=== PATIENT | male | born 1945 | race Caucasian/White ===

== ENCOUNTER 2016-08-05 08:23 | Day surgery (SDC) | payer OTHER ==
[2016-07-24 11:17] VITALS: BMI 26.7
[2016-08-05] MEDS: TROPICAMIDE 1% OPHTH SOLN 15 ML BOTTLE ONE ×5 (09:00→09:20)
[2016-08-05] MEDS: PHENYLEPHRINE 2.5% OPHTH SOLN 15 ML BOTTLE ONE ×5 (09:00→09:20)
[2016-08-05] MEDS: GENTAMICIN SULFATE 0.3% OPHTHALMIC (EYE DROPS) 5ML BOTTLE ONE ×5 (09:00→09:20)
[2016-08-05] MEDS: FLURBIPROFEN 0.03% OPHTH SOLN 2.5 ML BOTTLE ONE ×5 (09:00→09:20)
[2016-08-05] MEDS: CYCLOPENTOLATE HCL 1% OPHTH SOLN 2 ML BOTTLE ONE ×5 (09:00→09:20)
[2016-08-05] MEDS ORDERED: DESFLURANE GAS 240 ML BOTTLE IH ONE (09:42)
[2016-08-05] MEDS ORDERED: ONDANSETRON 4 MG/2 ML VIAL ONE (10:48)
[2016-08-05] MEDS ORDERED: ACETAMINOPHEN 325 MG TABLET (FP) PO PRN (10:55)
[2016-08-05] MEDS ORDERED: ACETYLCHOLINE 1:100 INTRA-OCUL 20 MG/2 ML KIT ONE (11:09)
[2016-08-05] MEDS ORDERED: MIDAZOLAM HCL 2 MG/2 ML SINGLE DOSE VIAL ONE (11:13)
[2016-08-05] MEDS ORDERED: LIDOCAINE HCL 2% JELLY 10 ML CARTRIDGE ONE (11:15)
[2016-08-05] MEDS ORDERED: BACITRACIN/POLYMYXIN OPH OINT 3.5 GM TUBE ONE (12:11)
[2016-08-05 12:31] VITALS: TEMP 98.2
[2016-08-05 12:52] VITALS: BP 128/65; PULSE 65
--- NOTE | 2016-08-05 15:03 | OP ---
DATE OF OPERATION: 08/05/2016 PROCEDURE: Planned extracapsular cataract extraction, phacoemulsification, insertion of posterior chamber lens implant, right eye. SURGEON: Itz Aguilar MD TASSEL MAKING MACHINE OPERATOR: Itz Aguilar MD ANESTHESIA: Local with standby. ANESTHESIOLOGIST: Enrike Rogers MD COMPLICATIONS: None. PREOPERATIVE DIAGNOSIS: Cataract, right eye. POSTOPERATIVE DIAGNOSIS: Cataract, right eye. FINDINGS AND PROCEDURE: After successful peribulbar anesthesia was given to the right eye, the patient was prepped and draped in the usual manner to expose the right eye. The lid speculum was inserted, microscope brought in position over the eye. A superior fornix-based flap was then fashioned for 12 mm using Westcotts and 0.12 forceps and hemostasis achieved with wet-field cautery. A limbal groove was then fashioned for 3 mm with a crescent blade and dissected anterior into clear cornea and then a 3-mm blade was used to enter the anterior chamber. Then under Viscoat, 360-degree anterior capsulotomy was performed, a leaflet removed from the eye, and then phacoemulsification of the entire nucleus was then done in 1-1/2 minutes time followed by irrigation and aspiration of all cortical material, leaving an intact posterior capsule and a red reflex present. ProVisc was injected in the posterior chamber to deepen the posterior capsule and then the implant was inspected carefully under microscope, found to be free of defects, debris, or flaws. It was folded, placed in the ProVisc filled cartridge and the cartridge was placed in the injector and the implant injected into the eye such that the inferior haptic was in inferior capsular bag and superior haptic in superior capsular bag and rotated in a horizontal position with a Sinskey hook. The ProVisc was aspirated out, replaced with Miochol and Miostat and BSS. The wound was closed with a single interrupted 10-0 Ethilon suture and tested for leakage and none was found. Then the conjunctival Tenon flap reapproximated. At this point the implant was fixated in the capsular bag, centrally located with a round pupil, intact posterior capsule, and a red reflex present. Topical Betoptic S and Maxitrol ophthalmic suspensions were placed as was bacitracin/polymyxin B ophthalmic ointment, and then the Tegaderm strips, and the lid speculum removed from the lids. The lids were closed, patch and shield placed on the eye, and the patient was then discharged from the operating room to the recovery area in good condition, having tolerated the procedure well. ITZ AGUILAR M.D. [id number]
== END 2016-08-05 12:55 | disposition home or self-care (01) ==
LOC: FASU 08:23
PROVIDERS: ATTEND Ophthalmology
PROC: 08RJ3JZ Replacement of Right Lens with Synthetic Substitute, Percutaneous Approach (ICD-10-PCS; principal; 2016-08-05 11:38)
DX: H26.8 Other specified cataract (principal)

== ENCOUNTER 2016-09-23 10:15 | Day surgery (SDC) | payer OTHER ==
[2016-09-17 14:33] VITALS: BMI 27.1
[~2016-09-23 10:15] MED LIST: ACETAMINOPHEN 325 MG TABLET (FP) PO PRN
[2016-09-23] MEDS: PHENYLEPHRINE 2.5% OPHTH SOLN 15 ML BOTTLE ONE ×5 (10:55→11:15)
[2016-09-23] MEDS: FLURBIPROFEN 0.03% OPHTH SOLN 2.5 ML BOTTLE ONE ×5 (10:55→11:15)
[2016-09-23] MEDS: GENTAMICIN SULFATE 0.3% OPHTHALMIC (EYE DROPS) 5ML BOTTLE ONE ×5 (10:55→11:15)
[2016-09-23] MEDS: TROPICAMIDE 1% OPHTH SOLN 15 ML BOTTLE ONE ×5 (10:55→11:15)
[2016-09-23] MEDS: CYCLOPENTOLATE HCL 1% OPHTH SOLN 2 ML BOTTLE ONE ×5 (10:55→11:15)
[2016-09-23 13:58] VITALS: TEMP 97.8
[2016-09-23 14:31] VITALS: BP 130/88; PULSE 56
--- NOTE | 2016-09-24 15:04 | OP ---
DATE OF OPERATION: 09/23/2016 PROCEDURE: Planned extracapsular cataract extraction, phacoemulsification, insertion of posterior chamber lens implant, left eye, with a filtering procedure. SURGEON: Hermann Pozo MD TUMBLER PLATER SURGEON: Maricarmen Mcfarland MD ANESTHESIA: Local standby. ANESTHESIOLOGIST: Sally Garza MD NURSE DIRECTOR IMMUNOLOGY: Max PREOPERATIVE DIAGNOSIS: Cataract, left eye, glaucoma, left eye. POSTOPERATIVE DIAGNOSIS: Cataract, left eye, glaucoma, left eye. FINDINGS AND PROCEDURES: After peribulbar anesthesia was given to the left eye , the patient was prepped and draped in the usual manner to expose the left eye. The Tegaderm strips and lid speculum were inserted, and the microscope brought into position over the left eye. Superior fornix-based flap was then fashioned for 12 mm with Carli scissors and 0.12 forceps, and hemostasis achieved with electrocautery. A limbal groove was then fashioned for approximately 3 mm with the crescent blade dissected anterior into clear cornea. A 3-mm blade was used to enter the anterior chamber, and the wound was enlarged to 3.5 mm. Then, under Viscoat, a 360- degree anterior capsulotomy was performed and the leaflet removed from the eye. Phacoemulsification of the entire nucleus was done in approximately 2 minutes time followed by irrigation and aspiration of all cortical material in an intact posterior capsule and a red reflex present. Provisc was injected into the posterior chamber to deepen the posterior capsule, and the implant was then grasped by its haptic, inspected carefully with the microscope, found to be free of defects, bleeding, flaws, was irrigated thoroughly with BSS, folded, placed in the Provisc-filled cartridge, and the cartridge placed in the injector, and the implant injected into the eye such that the inferior haptic was in the inferior capsular bag and the superior haptic was in the superior capsular bag and rotated in the horizontal position with the Sinskey hook. At this point, attention was focused to the trabecular mesh work where a block measuring 1.5 x 3.5 mm was excised using Micro-Sharp blade, Vannas scissors, and 0.12 forceps, and a peripheral iridotomy performed at 1 o'clock. The Provisc was then aspirated out, replaced with Miochol, Miostat, and BSS, and the wound was closed with 1 loosely tied 10-0 Ethilon interrupted suture, and with side-port irrigation, established filtration superiorly, such that when the conjunctival tenon flap was reapproximated, bleb began to form. At this point, the implant was fixated in the capsular bag centrally located with the round pupil intact, posterior capsule red reflex present, and a filtering bleb present superiorly. Topical Betoptic S and Maxitrol ophthalmic suspensions were placed as was Bacitracin and Polymyxin B ophthalmic ointment. Then, the Tegaderm strips and lid speculum were removed from the lids. The lids were closed, and a patch and shield placed on the eye. It should be noted again that a red reflex was present at the end of the procedure. With the patch and shield placed on the eye, the patient was then discharged from the operating room to the recovery area in good condition having tolerated the procedure well. Elisabet [id number] MTDD
== END 2016-09-23 14:15 | disposition home or self-care (01) ==
LOC: FASU 10:15
PROVIDERS: ATTEND Ophthalmology
PROC: 08133J4 Bypass Left Anterior Chamber to Sclera with Synthetic Substitute, Percutaneous Approach (ICD-10-PCS; 2016-09-23)
PROC: 08RK3JZ Replacement of Left Lens with Synthetic Substitute, Percutaneous Approach (ICD-10-PCS; principal; 2016-09-23 13:00)
DX: H26.8 Other specified cataract (principal); H40.9 Unspecified glaucoma